=== PATIENT | male | born 1960 | race Caucasian/White ===

== ENCOUNTER 2016-08-12 07:32 | Emergency (ER) | payer OTHER ==
[2016-08-12 07:55] VITALS: BP 119/76; PULSE 78; RESP 18; TEMP 98; O2SAT 97
--- NOTE | 2016-08-12 08:08 | UCPHY ---
H & P Patient Type: Established Chief Complaint Nursing Narrative: c/o SOB/Cough/Congestion /inc. SOB last pm with wheezing Time Seen by Provider: 08/12/16 07:56 HPI/ROS: CHIEF COMPLAINT: COUGH HISTORY OF PRESENT ILLNESS: The patient is a 55-year-old man who comes to the Urgent Care complaining of a persistent cough for the last 6 days. He has not had a fever. He has not had a runny nose or sore throat. No shortness of breath. No history of respiratory disease. He classifies symptoms as mild pain his is here with the same symptoms. He did receive the flu vaccination this year. REVIEW OF SYSTEMS: Constitutional: denies: chills, fever, recent illness, recent injury EENTM: denies: blurred vision, double vision, nose congestion Respiratory: See HPI Cardiac: denies: chest pain, irregular heart rate, lightheadedness, palpitations Gastrointestinal/Abdominal: denies: abdominal pain, diarrhea, nausea, vomiting, blood streaked stools Genitourinary: denies: dysuria, frequency, hematuria, pain Musculoskeletal: denies: joint pain, muscle pain Skin: denies: lesions, rash, jaundice, bruising Neurological: denies: headache, numbness, paresthesia, tingling, dizziness, weakness Hematologic/Lymphatic: denies: blood clots, easy bleeding, easy bruising Immunologic/allergic: denies: HIV/AIDS, transplant EXAM: GENERAL: Well-appearing, well-nourished and in no acute distress. HEAD: Atraumatic, normocephalic. EYES: Pupils equal round and reactive to light, extraocular movements intact, sclera anicteric, conjunctiva are normal. ENT: TMs normal, nares patent, oropharynx clear without exudates. Moist mucous membranes. NECK: Normal range of motion, supple without lymphadenopathy or JVD. LUNGS: Breath sounds clear to auscultation bilaterally and equal. No wheezes rales or rhonchi. HEART: Regular rate and rhythm without murmurs, rubs or gallops. ABDOMEN: Soft, nontender, normoactive bowel sounds. No guarding, no rebound. No masses appreciated. BACK: No CVA tenderness, no spinal tenderness, step-offs or deformities EXTREMITIES: Normal range of motion, no pitting or edema. No clubbing or cyanosis. NEUROLOGICAL: Cranial nerves II through XII grossly intact. Normal speech, normal gait. 5/5 strength, normal movement in all extremities, normal sensation PSYCH: Normal mood, normal affect. SKIN: Warm, dry, normal turgor, no visible rashes or lesions. Source: Patient Exam Limitations: No limitations - Medical/Surgical History Hx Asthma: No Hx Chronic Respiratory Disease: No Hx Diabetes: No Hx Cardiac Disease: No Hx Renal Disease: No Hx Cirrhosis: No Hx Alcoholism: No Hx HIV/AIDS: No Hx Splenectomy or Spleen Trauma: No Other PMH: denies - Family History Significant Family History: No pertinent family hx - Social History Smoking Status: Never smoked Alcohol Use: Sober Drug Use: None Constitutional: Initial Vital Signs Temperature (C) 36.6 C 08/12/16 07:54 Heart Rate 78 08/12/16 07:54 Respiratory Rate 18 08/12/16 07:54 Blood Pressure 119/76 08/12/16 07:54 O2 Sat (%) 97 08/12/16 07:54 O2 Delivery Mode Room Air Allergies/Adverse Reactions: No Known Allergies Allergy (Verified 06/10/16 16:22) Home Medications: Medication Instructions Recorded Ibuprofen [Motrin (*)] 200 mg PO DAILY PRN 07/29/16 Promethazine HCl/Codeine 5 ml PO Q4-6PRN PRN #90 ml 08/12/16 [Prometh-Codein 6.25-10 mg/5 ml] Medical Decision Making ED Course/Re-evaluation: Patient appears to have a viral respiratory illness. He has tried Mucinex with some relief. I will start him on another cough syrup and encouraged him to rest and hydrate. He understands and agrees with this plan. Differential Diagnosis: Partial list of the Differential diagnosis considered include but were not limited to; strep throat, pharyngitis, bronchitis, upper respiratory tract infection and although unlikely based on the history and physical exam, I also considered pneumonia, sinusitis, meningitis, sepsis. I discussed these differential diagnoses and the plan with the patient as well as the usual and expected course. The patient understands that the diagnosis is provisional and that in medicine we are not always correct and that further workup is often warranted. Usual and customary warnings were given. All of the patient's questions were answered. The patient was instructed to return to the emergency department should the symptoms at all worsen or return, otherwise to followup with the physician as we discussed. Departure - Departure Disposition: Home, Routine, Self-Care Clinical Impression: Upper respiratory tract infection Qualifiers: URI type: unspecified viral URI Qualifier Code: (J06.9) Acute upper respiratory infection, unspecified Condition: Fair Instructions: Upper Respiratory Infection (ED) Referrals: Marbin Ferrari MD [Primary Care Provider] - As per Instructions Prescriptions: Promethazine HCl/Codeine [Prometh-Codein 6.25-10 mg/5 ml] 5 ml PO Q4-6PRN PRN # 90 ml PRN Reason: Cough, Moderate - PQRS PQRS Measurement: Not applicable
== END 2016-08-12 08:13 | disposition home or self-care (01) ==
LOC: CED 07:32
DX: R05 Cough (principal)
CPT/HCPCS: 99214-PO; G0463-PO

== ENCOUNTER 2016-08-24 05:45 | Inpatient (IN) | payer OTHER ==
[2016-08-11 12:14] LABS: % IMMATURE GRANULYOCYTES 0.3 % (0.0-1.1); ABSOLUTE IMMATURE GRANULOCYTES 0.02 10^3/uL (0.00-0.10); ADD DIFF? NO; ADD MORPH? NO; ADD SCAN? NO; ATYPICAL LYMPHOCYTE FLAG 20 (0-99); FRAGMENT RBC FLAG 0 (0-99); HEMATOCRIT 45.2 % (40.0-51.0); HEMOGLOBIN 15.8 g/dL (13.7-17.5); LEFT SHIFT FLG 0 (0-99); LIPEMIA HEMOLYSIS FLAG 90 (0-99); MEAN CELL HEMOGLOBIN 31.2 pg (27.9-34.1); MEAN CELL VOLUME 89.2 fL (81.5-99.8); MEAN PLATELET VOLUME 8.8 fL (8.7-11.7); PLATELET CLUMPS FLAG 0 (0-99); PLATELET COUNT 194 10^3/uL (150-400); RED BLOOD CELL COUNT 5.07 10^6/uL (4.40-6.38); RED CELL DISTRIBUTION WIDTH 11.6 % (11.5-15.2)
--- NOTE | 2016-08-23 14:55 | GHP ---
[f rep st] PREOP HISTORY AND PHYSICAL DATE OF ADMISSION: 08/24/2016 He will be an a.m. admission for surgery on Wednesday, August 24, 2016. PROBLEM: Left hip arthritis. HISTORY OF PRESENT ILLNESS: The patient is a 55-year-old man admitted for a left total hip arthropla sty. He has had progressive pain in both hips for about 2 years. He has been having daily pain and night pain. Stairs are painful. Walking on concrete is painful. He has been using ibuprofen regula rly. He has trouble putting on his shoes and socks. He underwent a right total hip arthroplasty on July 07, 2016. He has had a very good result. He is admitted for the same procedure on the left side now. PAST MEDICAL HISTORY: Excellent general health. No history of heart disease, stents, DVT, hepatitis , or sleep apnea. CURRENT MEDICATIONS: None. ALLERGIES: Drug allergies: None. Metal allergy: None. Latex allergy: None. SOCIAL HISTORY: The patient is . He does computer work, primarily at a desk. He does not sm naveed cigarettes and occasionally drinks beer. FAMILY HISTORY: Positive for cancer. PHYSICAL EXAMINATION: GENERAL: He is a fit-appearing man. Height 5 feet 6 inches. Weight 195 poun ds. BMI 31.5. EYES: The conjunctivae and sclerae are clear. Pupils are round and reactive. MOUTH : Good oral hygiene. No loose teeth. CHEST: Clear. HEART: Regular rhythm. No murmurs. EXTREMI TIES: Pertinent findings limited to his left hip. He has full hip extension and 80 degrees of flexi on. External rotation 10 degrees. Internal rotation zero degrees. Abduction 20 degrees. IMAGING: Films show advanced degenerative arthritis of his left hip. He is bone on bone. He has ex cellent sizing and position of his right total hip arthroplasty. He is about 4 mm short on the left side. IMPRESSION ON ADMISSION: 1. Left hip advanced degenerative arthritis. He is prepared for a left total hip arthroplasty. 2. Six weeks status post successful right total hip arthroplasty. The surgery has been described to him, including the risks, complications, expectations, and recovery time. I have discussed with him the risks of dislocation, leg length inequality, infection, and sci atic nerve injury. He also understands that he is quite young for a total hip arthroplasty and may n eed revision surgery in the future. In addition, he understands that with bilateral procedures there can be mild [id number] differences in the recovery and even with the final result. All of his que stions have been answered, and he consents to surgery. /[id number]/MODL
[2016-08-24] MEDS ORDERED: SKIN ADHESIVE (DERMABOND) 1 EACH TP ONE (06:31)
[2016-08-24] MEDS ORDERED: ceFAZolin 1 GM/5 ML SYR ONE (06:32)
[2016-08-24] MEDS ORDERED: LIDOCAINE 1% 5 ML SDV ONE (06:32)
[2016-08-24] MEDS ORDERED: DEXAMETHASONE 4 MG/ML VIAL IVP ONE (07:00)
[2016-08-24] MEDS ORDERED: FAMOTIDINE 20 MG TAB PO ONE (07:00)
[2016-08-24] MEDS ORDERED: CEFAZOLIN 2 GM/DEXTR 100 ML IV ONE (07:00)
[2016-08-24] MEDS ORDERED: ROPI/epiNEPH/KETOROLAC JOINT COCKTAIL IU ONE (07:00)
[2016-08-24] MEDS ORDERED: CHLORHEXIDINE GLUC HIBICLENS 118 ML BTL TP ONE (07:00)
[2016-08-24] MEDS ORDERED: POVIDONE-IODINE 20 ML in SODIUM CL IRRIG SOLUTION 500 ML IRR ONE (07:00)
[2016-08-24] MEDS ORDERED: ACETAMINOPHEN 325 MG TAB PO ONE (07:00)
[2016-08-24] MEDS ORDERED: TRANEXAMIC ACID 1,600 MG in NS 100 ML IV ONE (07:00)
[2016-08-24] MEDS ORDERED: MIDAZOLAM 2 MG/2 ML VIAL ONE ×2 (07:04→07:22)
[2016-08-24] MEDS ORDERED: PROPOFOL/EMULSION 500 MG/50 ML BOTTLE IV ONE (07:04)
[2016-08-24] MEDS ORDERED: GLYCOPYRROLATE 0.2 MG/1 ML VIAL ONE ×2 (07:28)
[2016-08-24] MEDS ORDERED: LIDOCAINE 2% 5 ML SDV ONE (07:28)
[2016-08-24] MEDS ORDERED: epHEDrine SULFATE 10 MG/ML SYR ONE (07:28)
--- NOTE | 2016-08-24 08:50 | POSTOPPROG ---
Post Op Note Date of Operation: 08/24/16 Surgeon: Ahmet Lopez Technical Business Systems Analyst: Tucker Anesthesiologist: Ramesh Anesthesia: IV Sedation, Spinal Post-op Diagnosis: left hip arthritis Procedure: left ERNST Inf/Abcess present in the surg proc area at time of surgery?: No EBL: 100-500
[2016-08-24] MEDS ORDERED: METOCLOPRAMIDE 10 MG/2 ML VIAL IVP PRN (09:03)
[2016-08-24] MEDS ORDERED: diphenhydrAMINE 25 MG CAP PO PRN (09:03)
[2016-08-24] MEDS ORDERED: LACTULOSE 20 GM/30 ML UDCUP PO PRN (09:03)
[2016-08-24] MEDS ORDERED: ONDANSETRON 4 MG/2 ML VIAL IVP PRN (09:03)
[2016-08-24] MEDS ORDERED: PHARMACY PAIN CONSULT 1 EA MISC PRN (09:03)
[2016-08-24] MEDS ORDERED: MAGNESIUM HYDROXIDE 30 ML UDCUP PO PRN (09:03)
[2016-08-24] MEDS ORDERED: DIPHENOXYLATE/ATROPINE LOMOTIL 1 TAB PO PRN (09:03)
[2016-08-24] MEDS ORDERED: KETOROLAC 30 MG/1 ML SDV IVP PRN (09:03)
[2016-08-24] MEDS ORDERED: traMADol 50 MG TAB PO PRN (09:03)
[2016-08-24] MEDS ORDERED: NS 500 ML IV PRN (09:03)
[2016-08-24] MEDS ORDERED: ONDANSETRON DISINTEGRATING 4 MG TAB PO PRN (09:03)
[2016-08-24] MEDS ORDERED: POLYETHYLENE GLYCOL 3350 17 GM PKT PO PRN (09:03)
[2016-08-24] MEDS ORDERED: TEMAZEPAM 15 MG CAP PO PRN (09:03)
[2016-08-24] MEDS ORDERED: CYCLOBENZAPRINE 10 MG TAB PO PRN (09:03)
[2016-08-24] MEDS ORDERED: BISACODYL 10 MG SUPP PR PRN (09:03)
[2016-08-24] MEDS ORDERED: PROMETHAZINE HCL 25 MG SUPPR PR PRN (09:03)
[2016-08-24] MEDS ORDERED: PROMETHAZINE HCL 25 MG/ML INJ IVP PRN (09:03)
[2016-08-24] MEDS ORDERED: LR 1,000 ML IV SCH (09:30)
--- NOTE | 2016-08-24 09:46 | DX ---
Portable AP Pelvis, 2 Views Total, at 9:26 AM Clinical History: 55-year-old male, status post left hip arthroplasty, currently in the PACU. Comparison Study: AP pelvis, dated 07/07/2016. Findings: The patient has undergone a complete left hip arthroplasty, with anatomic alignment of the femoral and acetabular components. There is normally expected postoperative air in the soft tissues . A previously placed right hip arthroplasty remains stable in alignment. The ischial pubic rami are intact. Impression: 1. Status post left hip arthroplasty, with anatomic alignment. 2. Stable anatomic alignment of a previously placed right hip arthroplasty, compared to 07/07/2016.
--- NOTE | 2016-08-24 10:39 | GOP ---
[f rep st] OPERATIVE REPORT DATE OF OPERATION: 08/24/2016 SURGEON: Ahmet Lopez MD TRANSFER DRIVER: Delonte Olivarez, AIRPORT LOCATION MANAGER and Camden Cuellar, PAC. ANESTHESIA: Combination of Marcaine spinal and IV sedation. ANESTHESIOLOGIST: Misty Chandler MD. PREOPERATIVE DIAGNOSIS: Left hip severe degenerative arthritis. POSTOPERATIVE DIAGNOSIS: Left hip severe degenerative arthritis. PROCEDURE PERFORMED: Left total hip arthroplasty, Oxinium femoral head on highly cross-linked polyethylene cup liner. FINDINGS: DESCRIPTION OF PROCEDURE: The patient was given 2 g of IV Ancef preoperatively within 60 minutes of surgery. He also received IV tranexamic acid at a dose of 20 mg/kg. He was placed on the operating room table and given spinal anesthesia with Marcaine by Dr. Chandler. He was then placed supine and given IV sedation. A Willoughby catheter was not used. He wore a PRADIP stocking and SCD on the nonoperative leg. He was rolled to the right lateral decubitus position. The position was secured with the pegboard table attachment. An axillary roll was used and all pressure points were carefully padded. I was careful to lock his pelvis in a rigid vertical position. His perineum was isolated with plastic adhesive drapes. The left hip and left lower extremity were prepped with ChloraPrep. They were draped free using sterile sheets, stockinette, and Ioban plastic drapes. The [employer] time-out was performed to verify the correct patient identity and the correct surgical side. The [place] time-out was also performed. I made a 4 to 5-inch straight oblique posterolateral hip skin incision. The subcutaneous tissues were sharply divided, and hemostasis was obtained using electrocautery. The fascia alysia was identified and split along the axis of its fibers. I curved posteriorly and proximally and split the fascia of the gluteus martina and bluntly split the muscle fibers in line with their orientation. The Charnley self-retaining retractor was inserted. His sciatic nerve was located, partially exposed, and protected throughout the procedure. The external rotators and the posterior hip capsule were divided as separate layers at the base of the femoral neck, tagged, and reflected posteriorly. A smooth 1/8-inch Steinmann pin was inserted vertically into the ilium superior to the acetabulum. A 1/8-inch drill bit was inserted vertically into the greater trochanter and parallel to the first pin. The distance between the 2 was measured for leg length reference. His femoral head was dislocated posteriorly. Severe degenerative changes were present on the femoral head. His femoral neck was osteotomized at the appropriate level and inclination. I was careful to preserve all the posterior capsule and most of the anterior capsule. The remnant of his damaged labrum was excised. I prepared the femur first. This allowed me to marionette performer the amount of natural femoral neck anteversion. This, in turn, allowed me to later determine the correct amount of cup anteversion. He had approximately 10 degrees of natural femoral neck anteversion. His canal was opened laterally with a box chisel. I reamed and broached sequentially up to size 12. I used a size 12 broach as a trial stem. I was careful to lateralize adequately. Appropriate retractors were inserted to expose the acetabulum. The acetabulum was reamed sequentially up to 51 mm. I selected a 52 mm Simpson and Nephew R3 solid backed hemispherical shell. This was tapped securely into place in the proper degree of inclination and anteversion. I used the transverse acetabular ligament and other acetabular bony landmarks to help me properly orient the cup. Fixation was very tight, and supplemental screw fixation was not necessary. I inserted a screw-in metal dome hole plug. I performed a series of trial reductions to determine length and stability. I concluded that the size 12 stem with a +4 mm neck length, a 32 mm head and a flush liner gave me a proper combination of appropriate length and good anterior and posterior stability. The patient was 3 or 4 mm short preoperatively, and I was intentionally lengthening him. The flush Simpson and Nephew R3 highly cross-linked polyethylene liner was inserted and tapped securely into place. I selected a Simpson and Nephew Synergy stem in a size 12 with standard offset. This was inserted press-fit and was very tight. I did 1 final trial reduction, and confirmed that the +4 mm neck length with a 32 mm head was the proper combination. The Simpson and Nephew Oxinium head with 32 mm diameter and +4 mm neck length was tapped securely onto the clean trunnion. The acetabulum was irrigated and cleaned, and the hip was reduced 1 final time. He had excellent anterior and posterior stability and appropriate lengthening. 40 mL of the joint anesthetic cocktail were injected into the deep musculature, the capsule and the subcutaneous tissues along the skin edges. The joint was thoroughly irrigated 1 final time with a dilute Betadine solution. His sciatic nerve was reinspected and looked unharmed. The external rotators and the posterior hip capsule were repaired in separate layers with #2 FiberWire sutures through drill holes in the greater trochanter. This provided a very strong posterior capsular and external rotator repair. The fascia alysia was closed first with several interrupted [id number] #2 FiberWire sutures followed by a running #2 barbed Ethicon Stratafix PDO suture. The subcutaneous tissues were closed with a running 0 barbed Ethicon Stratafix Monoderm suture. The skin was closed with a running 3-0 barbed Ethicon Stratafix Monoderm subcuticular suture. The skin edges were reapproximated and sealed with Dermabond glue. The wound was covered with a strip of Telfa, and everything was held in place with a piece of clear plastic Tegaderm. A long-leg PRADIP stocking and SCD were applied to his left lower extremity. He wore a stocking and SCD on the opposite leg during the procedure. An abduction pillow was placed between his knees. He was awakened from anesthesia and rolled to the supine position on his [facility]. He was taken to PACU in satisfactory condition. There were no recognized intraoperative complications. The estimated blood loss was about 400 mL. The sponge and needle count were correct on 2 occasions. I used a Simpson [employer] Nephew R3 hemispherical solid-backed acetabular shell with an outside diameter of 52 mm. The liner was a Simpson and Nephew R3 flush highly cross-linked liner with an inside diameter of 32 mm. The femoral component was a standard offset Simpson and Nephew Synergy stem in a size 12 and press-fit. The femoral head was a Simpson and Nephew Oxinium head with a 0 neck length and a 32 mm outside diameter. Delonte Olivarez and Juan Diego Cuellar acted as surgical assistants. Their assistance was a medical necessity. /[id number]/MODL MTDD
[2016-08-24] MEDS: ACETAMINOPHEN 325 MG TAB PO SCH ×2 (11:27→17:54)
[2016-08-24] MEDS: TRANEXAMIC ACID 650 MG TAB PO SCH ×3 (11:27→21:32)
[2016-08-24] MEDS ORDERED: ceFAZolin 2 GM/DEXTROSE 100 ML IV SCH (14:00)
[2016-08-24] MEDS: ceFAZolin 2 GM in D5W 100 ML IV SCH ×2 (14:22→21:36)
[2016-08-24] MEDS: oxyCODONE IR 5 MG TAB PO PRN ×3 (17:53→21:51)
[2016-08-24 19:44] VITALS: RESP 18
[2016-08-24] MEDS: SENNOSIDES/DOCUSATE SODIUM TAB PO SCH (21:32)
[2016-08-24] MEDS: FAMOTIDINE 20 MG TAB PO SCH (21:32)
[2016-08-24] MEDS: ASPIRIN 325 MG TAB PO SCH (21:36)
[2016-08-24 23:35] VITALS: O2SAT 92
[2016-08-25] MEDS: ACETAMINOPHEN 325 MG TAB PO SCH ×2 (01:13→06:23)
[2016-08-25 02:39] VITALS: BP 136/65; PULSE 62; TEMP 98.3
[2016-08-25] MEDS: oxyCODONE IR 5 MG TAB PO PRN ×2 (04:08→08:33)
[2016-08-25 05:26] LABS: HEMATOCRIT 38.3 % (40.0-51.0); HEMOGLOBIN 13.3 g/dL (13.7-17.5)
[2016-08-25] MEDS: TRANEXAMIC ACID 650 MG TAB PO SCH (08:32)
[2016-08-25] MEDS: ASPIRIN 325 MG TAB PO SCH (08:32)
[2016-08-25] MEDS: FAMOTIDINE 20 MG TAB PO SCH (08:32)
[2016-08-25] MEDS: SENNOSIDES/DOCUSATE SODIUM TAB PO SCH (08:34)
[2016-08-25] MEDS ORDERED: FERROUS SULFATE 140 MG TAB.ER PO SCH (09:00)
--- NOTE | 2016-08-25 09:31 | SOAPPROG ---
SOAP Progress Note Assessment/Plan: Assessment: Afebrile. Mild pain. Up and walking. Dsg is dry. Sciatic nerve intact. Films look good. H/H is good. Plan: PT Home today. 08/25/16 09:30 Objective: Vital Signs Temp Pulse Resp BP Pulse Ox 36.8 C 62 18 136/65 H 92 08/25/16 02:38 08/25/16 02:38 08/25/16 02:38 08/25/16 02:38 08/25/16 02:38 Laboratory Results 08/25/16 04:29 08/24/16 08/25/16 08/26/16 05:59 05:59 05:59 Intake Total 3000 Output Total 2100 Balance 900 ICD10 Worksheet Patient Problems: Problems Problem Status Onset Primary osteoarthritis of left hip Acute Osteoarthritis of right hip Acute
--- NOTE | 2016-08-25 11:08 | GDS ---
[f rep st] DISCHARGE SUMMARY ADMISSION DIAGNOSIS: Left hip severe degenerative arthritis. DISCHARGE DIAGNOSIS: Left hip severe degenerative arthritis. OPERATION PERFORMED: 08/24/2016, left total hip arthroplasty, Oxinium femoral head on highly cross- linked polyethylene cup liner. POSTOPERATIVE COMPLICATIONS: None. CONDITION ON DISCHARGE: Improved. DESCRIPTION OF HOSPITAL COURSE: The patient was admitted to the hospital the morning of surgery. H is CBC was normal. The same day, under a combination of Marcaine spinal and IV sedation, he underwe nt a left total hip arthroplasty. Postoperatively, he was treated with multimodal DVT prophylaxis i ncluding aspirin. On the 1st postoperative day, his hemoglobin and hematocrit were 13.3 and 38.3. He did not require any transfused blood. He was seen by Physical Therapy and made excellent progres s with ambulation and stairs. By the time of discharge, he was afebrile. He was independent in pending sale to [facility] and his dressing was dry. DISPOSITION: Patient discharged to his home. He may progress to full weightbearing as tolerated. Use a pillow in bed for 3 weeks. Continue PRADIP stockings for 1 week. Continue aspirin 325 mg p.o. d aily for 21 days. I will see him back in the office on 09/13/2016. If there are any problems, he i s to call me at the office. He has prescriptions for tramadol and oxycodone for pain control. /[id number]/MODL
[2016-08-26] MEDS ORDERED: Herbals/Supplements -Info Only PO SCH (09:00)
== END 2016-08-25 11:32 | disposition home or self-care (01) | DRG 470 ==
LOC: F3N 05:45
PROVIDERS: ADMIT Orthopaedic Surgery; ATTEND Orthopaedic Surgery
PROC: 0SRB02Z Replacement of Left Hip Joint with Metal on Polyethylene Synthetic Substitute, Open Approach (ICD-10-PCS; principal; 2016-08-24 07:15)
DX: M16.12 Unilateral primary osteoarthritis, left hip (principal)
CPT/HCPCS: 97116-GP; 97161-GP; 97165-GO; 97530-GP; J0171; J0690; J1100; J1885; J2250; J2704; J2795

== ENCOUNTER → 2018-06-08 | Outpatient (CLI) | payer OTHER ==
[~2018-06-08] MED LIST: IOPAMIDOL (ISOVUE-300) 100 ML BTL ONE
== END ==
LOC: CIMAGING 08:15
PROVIDERS: ATTEND Nurse Practitioner Family
DX: R59.0 Localized enlarged lymph nodes (principal); R93.89 Abnormal findings on diagnostic imaging of other specified body structures; R91.1 Solitary pulmonary nodule; E04.1 Nontoxic single thyroid nodule
CPT/HCPCS: 70491-PO; Q9967